=== PATIENT | female | born 1995 | race Caucasian/White ===

== ENCOUNTER 2021-10-29 19:47 | Emergency (ER) | payer SELFPAY ==
[~2021-10-29] VITALS: Ht 162.6 cm; Wt 76.0 kg
[2021-10-30] MEDS ORDERED: IBUPROFEN 600MG TABLET PO ONE (00:15)
[2021-10-30] MEDS ORDERED: ACETAMINOPHEN 500MG TABLET PO ONE (00:15)
[2021-10-30 00:37] LABS: BASOPHILS % 0.4 % (0.0-2.0); EOSINOPHILS % 0.1 % (0.0-5.0); HEMATOCRIT. 39.6 % (36.0-48.0); HEMOGLOBIN. 13.9 g/dL (12.0-16.0); LYMPHOCYTES % 18.8 % (20.0-50.0); MEAN CORPUSCULAR HEMOGLOBIN 31.3 pg (28.0-32.0); MEAN CORPUSCULAR VOLUME 89.2 fL (81.0-99.0); MEAN PLATELET VOLUME 8.5 fl (7.4-10.4); MONOCYTES % 7.8 % (2.0-8.0); NEUTROPHILS % 72.9 % (40.0-76.0); PLATELET 241 x1000/uL (130-400); RED BLOOD CELL COUNT 4.44 mill/uL (4.2-5.4); RED CELL DISTRIBUTION WIDTH 13.2 % (11.6-14.6)
[2021-10-30 00:43] LABS: CHLORIDE 107 mEq/L (98-107)
[2021-10-30] MEDS ORDERED: IBUP-2029 MT (01:20)
[2021-10-30] MEDS ORDERED: ACET-2708 MT (01:20)
[2021-10-30 01:35] VITALS: BP 133/73
== END 2021-10-30 01:37 | disposition home or self-care (01) ==
LOC: ER 19:47
DX: B34.9 Viral infection, unspecified (principal); Z20.822 Contact with and (suspected) exposure to COVID-19
CPT/HCPCS: 36415; 71045; 80053; 85025; 87426; 87804; 99284; C9803